=== PATIENT | female | born 1955 ===

== ENCOUNTER 2017-10-30 09:45 | Day surgery (SDC) | payer OTHER ==
[~2017-10-30 09:45] MED LIST: Acetaminophen TAB* 325 MG PO PRN; Buffered Lidocaine 0.9% SYRIN* 5 ML/SYR SYRINGE INTRADERM ONE
[2017-10-30] MEDS ORDERED: Midazolam* 1 MG/ML 2 ML VIAL (2 MG) ONE (11:36)
[2017-10-30] MEDS ORDERED: Cyclopentolate 1% OPTH.SOL* 2 ML BTL ONE (11:56)
[2017-10-30] MEDS ORDERED: acetaZOLAMIDE TAB* 250 MG ONE (11:56)
[2017-10-30] MEDS ORDERED: Ketorolac 0.5% OPHTH (NF) 0.5 % 5 ML BTL ONE (11:56)
[2017-10-30] MEDS ORDERED: Tetracaine 0.5% OPTH.SOL 4 ML* 1 DROP BTL ONE (11:56)
[2017-10-30] MEDS ORDERED: Phenylephrine 2.5% OPTH.SOL* 2 ML BTL ONE (11:56)
[2017-10-30] MEDS ORDERED: Povidone Iodine 5% OPTH* 30 ML BTL ONE (11:56)
[2017-10-30] MEDS ORDERED: Neomycin/Polymy/Dex OPHTH.OIN* 3.5 GM ONE (11:56)
[2017-10-30] MEDS ORDERED: Lidocaine 1% MPF* 2 ML VIAL ONE (11:56)
[2017-10-30] MEDS ORDERED: Tropicamide 1% OPTH.SOL* BTL ONE (11:56)
[2017-10-30 12:18] VITALS: BP 145/82
--- NOTE | 2017-10-31 01:02 | OP ---
CANCEL - NO DICTATION. [id number]/[facility] #: [id number] MTDD
--- NOTE | 2017-10-31 01:43 | OP ---
DATE OF OPERATION: 10/30/17 - [facility] DATE OF : 57 SURGEON: Tyrone Hui MD ANESTHESIA: Monitored anesthesia care. PRE-OP DIAGNOSIS: Cataract, right eye with astigmatism. POST-OP DIAGNOSIS: Cataract, right eye with astigmatism. OPERATIVE PROCEDURE: Extracapsular cataract extraction of the right eye with intraocular lens implant. IMPLANTS: SN6AT5 24.0 diopter lens at 13 degrees in the right eye. COMPLICATIONS: None. DESCRIPTION OF PROCEDURE: The patient was given phenylephrine 2.5% and cyclopentolate 1% eye drops to the operative eye in the preoperative area. The patient was sat in upright position and corneal markings were placed to assist in toric lens placement. The patient was brought to the operating room where a time- out was taken to identify the correct patient, site and side of surgery. The patient's right eye was prepped and draped in the usual sterile fashion with 5% Betadine. A second time-out was taken to verify the correct patient, site and side of surgery and correct lens selection. A lid speculum was placed to the right eye. A 1 mm paracentesis blade was used to make a clear corneal incision in the superotemporal position. Preservative-free 1% lidocaine was injected into the anterior chamber. DisCoVisc was injected into the anterior chamber. A 2.75 mm keratome blade was used to make a triplanar incision at the infero-temporal position. A cystotome initiated a capsulorrhexis, which was completed with Utrata forceps in a continuous and curvilinear manner. Hydrodissection of the lens was performed with BSS on a cannula. The lens could be spun in the capsular bag. The phacoemulsification handpiece was used with a smrkqt-ttu-hidinvo technique to remove the nucleus in its entirety with 10.19 CDE. The I/A handpiece then removed the residual cortical lens material. DisCoVisc was injected to inflate the capsular bag. The planned SN6AT5 24.0 diopter lens was injected in the capsular bag and rotated to 13-degree meridian. The residual DisCoVisc was removed from the eye with the I/A handpiece and the lens was again confirmed to be in the correct location. The corneal incisions were hydrated and no leaks occurred at physiologic pressure around 20 mmHg per palpation. The lid speculum was removed and drapes removed. Maxitrol ointment was placed to the surface of the operative eye. An adhesive patch and shield was then placed in the operative eye. The patient was taken to the postoperative area in stable condition. [id number]/[facility] #: [id number] MTDD
== END 2017-10-30 12:28 | disposition home or self-care (01) ==
LOC: OREAST 09:45
PROVIDERS: ATTEND Student in an Organized Health Care Education/Training Program
DX: H25.11 Age-related nuclear cataract, right eye (principal); H52.201 Unspecified astigmatism, right eye; E78.5 Hyperlipidemia, unspecified; F32.9 Major depressive disorder, single episode, unspecified; Z79.899 Other long term (current) drug therapy; Z87.891 Personal history of nicotine dependence
CPT/HCPCS: A9270-GY; J2250; V2632

== ENCOUNTER 2017-11-06 09:41 | Day surgery (SDC) | payer OTHER ==
[2017-11-06] MEDS ORDERED: Midazolam* 1 MG/ML 5 ML VIAL (5 MG) ONE (11:38)
[2017-11-06 12:45] VITALS: BP 122/81
[2017-11-06] MEDS ORDERED: Tropicamide 1% OPTH.SOL* BTL ONE (15:10)
[2017-11-06] MEDS ORDERED: Neomycin/Polymy/Dex OPHTH.OIN* 3.5 GM ONE (15:10)
[2017-11-06] MEDS ORDERED: Lidocaine 1%* 5 ML VIAL ONE (15:10)
[2017-11-06] MEDS ORDERED: Cyclopentolate 1% OPTH.SOL* 2 ML BTL ONE (15:10)
[2017-11-06] MEDS ORDERED: Povidone Iodine 5% OPTH* 30 ML BTL ONE (15:10)
[2017-11-06] MEDS ORDERED: Phenylephrine 2.5% OPTH.SOL* 2 ML BTL ONE (15:10)
[2017-11-06] MEDS ORDERED: Tetracaine 0.5% OPTH.SOL 4 ML* 1 DROP BTL ONE (15:10)
[2017-11-06] MEDS ORDERED: Ketorolac 0.5% OPHTH (NF) 0.5 % 5 ML BTL ONE (15:10)
[2017-11-06] MEDS ORDERED: acetaZOLAMIDE TAB* 250 MG ONE (15:10)
--- NOTE | 2017-11-07 09:07 | OP ---
DATE OF OPERATION: 11/06/17 - [facility] DATE OF : 57 SURGEON: Tyrone Hui MD ANESTHESIA: Monitored anesthesia care. PRE-OP DIAGNOSIS: Cataract, left eye with astigmatism. POST-OP DIAGNOSIS: Cataract, left eye with astigmatism. OPERATIVE PROCEDURE: Extracapsular cataract extraction of the left eye with intraocular lens implant. IMPLANTS: SN6AT4 23.0 diopter lens at 162 degrees. COMPLICATIONS: None. DESCRIPTION OF PROCEDURE: The patient was given phenylephrine 2.5% and cyclopentolate 1% eye drops to the operative eye in the preoperative area. The patient was sat in upright position and corneal markings were placed to assist in toric lens placement. The patient was brought to the operating room where a time- out was taken to identify the correct patient, site, and side of the surgery. The patient's left eye was prepped and draped in the usual sterile fashion with 5% Betadine. A second time-out was taken to verify the correct patient, site, and side of surgery and correct lens selection. A lid speculum was placed to the left eye. Corneal markings were placed at 162 degree meridian. A 1-mm paracentesis blade was used to make a clear corneal incision in the inferotemporal position. Preservative-free 1% lidocaine was injected into the anterior chamber. DisCoVisc was then injected into the anterior chamber. A 2.75 mm keratome blade was used to make a triplanar incision at the superotemporal position. A cystotome initiated a capsulorrhexis, which was completed with Utrata forceps in a continuous and curvilinear manner. Hydrodissection of the lens was performed with BSS on a cannula. The lens could be spun in the capsular bag. The phacoemulsification handpiece was used with a dtwhfb-onr-rtezljf technique to remove the nucleus in its entirety with 12.04 CDE. The I/A handpiece then removed the residual cortical lens material. DisCoVisc was injected to inflate the capsular bag. The planned SN6AT4 23.0 diopter lens was injected into the capsular bag and rotated to the 162 degree meridian. The residual DisCoVisc was removed from the eye with the I/A handpiece and the lens was again confirmed to be in the correct location. The corneal incisions were hydrated and no leaks occurred at physiologic pressure around 20 mmHg per palpation. The lid speculum was removed and drapes removed. Maxitrol ointment was placed on the surface of the operative eye. An adhesive patch and shield was then placed on the operative eye. The patient was taken to the postoperative area in stable condition. [id number]/[facility] #: [id number] MTDD
== END 2017-11-06 12:50 | disposition home or self-care (01) ==
LOC: OREAST 09:41
PROVIDERS: ATTEND Student in an Organized Health Care Education/Training Program
DX: H25.12 Age-related nuclear cataract, left eye (principal); H52.202 Unspecified astigmatism, left eye; E78.00 Pure hypercholesterolemia, unspecified; Z87.891 Personal history of nicotine dependence; K21.9 Gastro-esophageal reflux disease without esophagitis; M81.0 Age-related osteoporosis without current pathological fracture; F32.0 Major depressive disorder, single episode, mild; E78.2 Mixed hyperlipidemia; M19.90 Unspecified osteoarthritis, unspecified site
CPT/HCPCS: A9270-GY; J2250; V2787